=== PATIENT | female | born 1955 | race Caucasian/White ===

== ENCOUNTER 2017-07-30 13:31 | Emergency (ER) | payer BC ==
[2017-07-30 13:47] VITALS: BP 139/74; PULSE 72; RESP 20; TEMP 97.5
--- NOTE | 2017-07-30 13:58 | ED ---
General Adult HPI - General Chief complaint: Extremity Injury, Upper Stated complaint: fall/arm pain Time Seen by Provider: 07/30/17 13:49 Source: patient, RN notes reviewed Mode of arrival: ambulatory Limitations: no limitations - History of Present Illness Initial comments: 61-year-old female presents emergency Department chief complaint of right elbow pain. She states that she slipped on the ice today landing onto her right elbow. She states it happened earlier this morning just is progressively becoming more painful. She denies any fever or chills. She denies any head injury or any loss of consciousness. They were concerned due to that her continued discomfort so she thought that she should be seen.Patient denies any recent fever, chills, shortness of breath, chest pain, back pain, abdominal pain , nausea vomiting, numbness or tingling, dysuria or hematuria, constipation or diarrhea, headaches or visual changes, or any other current symptoms. - Related Data Home Medications Medication Instructions Recorded Confirmed Lovastatin 40 mg PO HS 11/22/14 07/04/15 Omeprazole [PriLOSEC] 20 tab PO DAILY 11/22/14 07/04/15 amLODIPine BESYLATE/BENAZEPRIL 1 cap PO DAILY 07/02/15 07/04/15 [Lotrel 5-10 mg Capsule] Allergies Allergy/AdvReac Type Severity Reaction Status Date / Time No Known Allergies Allergy Verified 07/30/17 14:03 Review of Systems ROS Statement: Those systems with pertinent positive or pertinent negative responses have been documented in the HPI. ROS Other: All systems not noted in ROS Statement are negative. Past Medical History Past Medical History: GERD/Reflux, Hyperlipidemia, Hypertension Additional Past Medical History / Comment(s): MURMUR History of Any Multi-Drug Resistant Organisms: MRSA Date of last positivie culture/infection: 07/02/15 MDRO Source:: BUTTOCK Past Surgical History: Appendectomy Additional Past Surgical History / Comment(s): CYSTS REMOVED FROM OVARIES, COLONOSCOPY. Past Anesthesia/Blood Transfusion Reactions: Previous Problems w/ Anesthesia Additional Past Anesthesia/Blood Transfusion Reaction / Comment(s): DIFFICULTY WAKING. Past Psychological History: No Psychological Hx Reported Smoking Status: Never smoker Past Alcohol Use History: None Reported Past Drug Use History: None Reported - Past Family History Father Family Medical History: Diabetes Mellitus, Hypertension, Osteoarthritis (OA), Thyroid Disorder Mother Family Medical History: Diabetes Mellitus Additional Family Medical History / Comment(s): HIP REPLACEMENT- MOM IS General Exam - General Exam Comments Initial Comments: General: The patient is awake and alert, in no distress, and does not appear acutely ill. Neck: The neck is supple, there is no tenderness. Cardiovascular: There is a regular rate and rhythm. No murmur, rub or gallop is appreciated. Respiratory: Lungs are clear to auscultation, respirations are non-labored, breath sounds are equal. No wheezes, stridor, rales, or rhonchi. Musculoskeletal: Sensation intact with 2+ pulses. Extremity. Fund motion of right wrist. Patient's range of motion of right shoulder. Pain with range of motion of the right elbow. No numbness or tingling. There is some swelling noted. No specific point bony tenderness. Neurological: CN II-XII intact, There are no obvious motor or sensory deficits. Coordination appears grossly intact. Speech is normal. Skin: Skin is warm and dry and no rashes or lesions are noted. Psychiatric: Normal mood and affect. Limitations: no limitations Course Vital Signs 07/30/17 13:45 Temperature 97.5 F L Pulse Rate 72 Respiratory 20 Rate Blood Pressure 139/74 O2 Sat by Pulse 100 Oximetry Procedures - Orthopedic Splinting/Casting Injury #1 Side: right Upper Extremity Injury Location: long arm, elbow Upper Extremity Immobilizer: sling/shoulder immobilizer, posterior splint (long arm) Medical Decision Making - Medical Decision Making 61-year-old female presents for right elbow pain after a fall. At this time patient x-rays reviewed that does show concern for occult fracture. This time she was placed in a splint. We discussed follow-up with orthopedic we discussed return parameters all questions. Patient stated that she understood and she is agreement this plan. She'll be discharged. - Radiology Data Radiology results: report reviewed, image reviewed Disposition Clinical Impression: Occult fracture of right elbow Disposition: HOME SELF-CARE Condition: Stable Instructions: Elbow Fracture (ED) Additional Instructions: Please use medication as discussed. Please follow up with family doctor if symptoms have not improved over the next two days. Please return to the emergency room if your symptoms increase or worsen or for any other concerns. Referrals: Russell Tanner DO [Primary Care Provider] - 1-2 days Minh Pereira MD [STAFF PHYSICIAN] - 1-2 days Time of Disposition: 14:33
--- NOTE | 2017-07-30 14:25 | XR ---
EXAMINATION TYPE: XR elbow complete RT DATE OF EXAM: 07/30/2017 CLINICAL HISTORY: pain TECHNIQUE: Frontal, lateral and oblique images of the right elbow are obtained. COMPARISON: None. FINDINGS: There is no acute fracture/dislocation evident of the elbow. Pathologic anterior or mining technician ior fat pads. The overlying soft tissue appears unremarkable. IMPRESSION: Pathologic anterior and posterior fat pads. Occult fracture not seen on the indirect evid ence for displaced fracture at this time. Correlate clinically.
== END 2017-07-30 14:45 | disposition home or self-care (01) ==
LOC: EC 13:31
DX: S42.401A Unspecified fracture of lower end of right humerus, initial encounter for closed fracture (principal); K21.9 Gastro-esophageal reflux disease without esophagitis; E78.5 Hyperlipidemia, unspecified; I10 Essential (primary) hypertension; Z86.14 Personal history of Methicillin resistant Staphylococcus aureus infection; Z79.899 Other long term (current) drug therapy
CPT/HCPCS: 29105; 99283

== ENCOUNTER 2018-09-02 18:44 | Observation (INO) | payer BC ==
[2018-09-02] MEDS ORDERED: SODIUM CHLORIDE 0.9% 1,000 ML IV STA (19:06)
[2018-09-02] MEDS ORDERED: ASPIRIN 81 MG PO STA (19:06)
[2018-09-02 20:07] LABS: Basophils # (A) 0.1 k/uL (0-0.2); Basophils % (A) 1 %; Eosinophils # (A) 0.4 k/uL (0-0.7); Eosinophils % (A) 5 %; HCT 42.5 % (34.0-46.0); HGB 13.8 gm/dL (11.4-16.0); Lymphocytes # (A) 2.9 k/uL (1.0-4.8); Lymphocytes % (A) 37 %; MCH 27.3 pg (25.0-35.0); MCHC 32.5 g/dL (31.0-37.0); Mean Platelet Volume 6.3; Monocytes # (A) 0.4 k/uL (0-1.0); Monocytes % (A) 5 %; Neutrophils # (A) 3.8 k/uL (1.3-7.7); Neutrophils % (A) 49 %; Platelet Count 333 k/uL (150-450); RBC 5.06 m/uL (3.80-5.40); RDW 13.9 % (11.5-15.5); WBC 7.8 k/uL (3.8-10.6)
[2018-09-02 20:16] LABS: ALT 42 U/L (9-52); AST 31 U/L (14-36); Albumin 4.5 g/dL (3.5-5.0); Alkaline Phosphatase 79 U/L (38-126); Blood Urea Nitrogen 20 mg/dL (7-17); Calcium 9.6 mg/dL (8.4-10.2); Carbon Dioxide 29 mmol/L (22-30); Chloride 103 mmol/L (98-107); Glucose 102 mg/dL (74-99); Magnesium 1.9 mg/dL (1.6-2.3); Total Bilirubin 0.4 mg/dL (0.2-1.3); Total Protein 7.6 g/dL (6.3-8.2)
[2018-09-02 20:21] LABS: Anion Gap 8 mmol/L; Potassium 4.3 mmol/L (3.5-5.1); Sodium 140 mmol/L (137-145)
[2018-09-02 20:29] LABS: INR 0.9 (<1.2); Partial Thromboplastin Time 25.3 sec (22.0-30.0); Prothrombin Time 9.8 sec (9.0-12.0)
--- NOTE | 2018-09-02 20:42 | ED ---
General Adult HPI - General Chief complaint: Extremity Problem,Nontraumatic Stated complaint: Arm and shoulder pain Time Seen by Provider: 09/02/18 19:06 Source: patient, RN notes reviewed, old records reviewed Mode of arrival: ambulatory Limitations: no limitations - History of Present Illness Initial comments: 62-year-old female patient with past medical history of gastroesophageal reflux disease, hypertension presents to ED with left shoulder pain of 2 days. Patient reports that the pain is worse with range of motion, has some pain radiation down to her left bicep. Patient states that she has felt 2 episodes of some mild sternal heaviness. Patient reports that these were transient. One occurred while laying down at night. One occurred this morning while sitting. Patient states that this lasted less than 2 seconds and did not radiate. Patient has been ambulatory and active. Patient has not expressed any chest pain with activity. Patient denies any shortness of breath. Patient denies other complaints. Patient states that the primary reason that she presented today was because she wanted to make sure that her left shoulder pain is not a coronary equivalent. Patient has no personal cardiac history. Systemic: Pt denies fatigue, myalgia, fever/chills, rash. Pt denies weakness, night sweats, weight loss. Neuro: Pt denies headache, visual disturbances, syncope or pre-syncope. HEENT: Pt denies ocular discharge or irritation, otalgia, rhinorrhea, pharyngitis or notable lymphadenopathy. Cardiopulmonary: Pt denies SOB, heart palpitations, dyspnea on exertion. Abdominal/GI: Pt denies abdominal pain, n/v/d. : Pt denies dysuria, burning w/ urination, frequency/urgency. Denies new onset urinary or bowel incontinence. MSK: Pt denies myalgia, loss of strength or function in extremities. Neuro: Pt denies new onset weakness, paresthesias. - Related Data Home Medications Medication Instructions Recorded Confirmed Lovastatin 40 mg PO HS 11/22/14 09/02/18 Omeprazole [PriLOSEC] 20 mg PO DAILY 11/22/14 09/02/18 amLODIPine BESYLATE/BENAZEPRIL 1 cap PO DAILY 07/02/15 09/02/18 [Lotrel 5-10 mg Capsule] Multivit-Min/Iron/Folic/Lutein 1 tab PO DAILY 09/02/18 09/02/18 [Centrum Silver Women Tablet] Allergies Allergy/AdvReac Type Severity Reaction Status Date / Time No Known Allergies Allergy Verified 09/02/18 20:43 Review of Systems ROS Statement: Those systems with pertinent positive or pertinent negative responses have been documented in the HPI. ROS Other: All systems not noted in ROS Statement are negative. Past Medical History Past Medical History: GERD/Reflux, Hyperlipidemia, Hypertension Additional Past Medical History / Comment(s): MURMUR History of Any Multi-Drug Resistant Organisms: MRSA Date of last positivie culture/infection: 07/02/15 MDRO Source:: BUTTOCK Past Surgical History: Appendectomy Additional Past Surgical History / Comment(s): CYSTS REMOVED FROM OVARIES, COLONOSCOPY. Past Anesthesia/Blood Transfusion Reactions: Previous Problems w/ Anesthesia Additional Past Anesthesia/Blood Transfusion Reaction / Comment(s): DIFFICULTY WAKING. Past Psychological History: No Psychological Hx Reported Smoking Status: Never smoker Past Alcohol Use History: None Reported Past Drug Use History: None Reported - Past Family History Father Family Medical History: Diabetes Mellitus, Hypertension, Osteoarthritis (OA), Thyroid Disorder Mother Family Medical History: Diabetes Mellitus Additional Family Medical History / Comment(s): HIP REPLACEMENT- MOM IS General Exam - General Exam Comments Initial Comments: Constitutional: NAD, AOX3, Pt has pleasant affect. HEENT: NC/AT, trachea midline, neck supple, no lymphadenopathy. Posterior pharynx non erythematous, without exudates. External ears appear normal, without discharge. Mucous membranes moist. Eyes PERRLA, EOM intact. There is no scleral icterus. No pallor noted. Cardiopulmonary: RRR, no murmurs, rubs or gallops, no JVD noted. Lungs CTAB in anterior and posterior cee. No peripheral edema. Abdominal exam: Abdomen soft and non-distended. Abdomen non-tender to palpation in all 4 quadrants. Bowel sounds active in LLQ. No hepatosplenomegaly. No ecchymosis Neuro: CN II-XII grossly intact. No nuchal rigidity. MSK: No posterior calf tenderness bilaterally, homans sign negative bilaterally. Posterior tibialis and radial pulse +2 bilaterally. Sensation intact in upper and lower extremities. Full active ROM in upper and lower extremities, 5/5 stregnth. Limitations: no limitations Course Vital Signs 09/02/18 09/02/18 09/02/18 19:03 19:57 22:00 Temperature 98.2 F Pulse Rate 90 89 83 Respiratory 18 16 18 Rate Blood Pressure 156/82 147/93 132/76 O2 Sat by Pulse 99 97 96 Oximetry Medical Decision Making - Medical Decision Making 62-year-old female patient with past medical history of gastroesophageal reflux disease, hypertension presents to ED with left shoulder pain of 2 days. Patient reports that the pain is worse with range of motion, has some pain radiation down to her left bicep. Patient states that she has felt 2 episodes of some mild sternal heaviness. Patient reports that these were transient. One occurred while laying down at night. One occurred this morning while sitting. Patient states that this lasted less than 2 seconds and did not radiate. Patient has been ambulatory and active. Patient has not expressed any chest pain with activity. Patient denies any shortness of breath. Patient denies other complaints. Patient states that the primary reason that she presented today was because she wanted to make sure that her left shoulder pain is not a coronary equivalent. Patient has no personal cardiac history. Patient vital signs stable, afebrile. Physical exam did not display acute pathology. investigations revealed a non-impressive CBC, CMP, coagulation studies within normal limits, troponin negative, BNP negative. EKG not concerning for acute ischemia. Patient to be admitted for serial troponins, telemetry. Case discussed with Dr. Edwards. - Lab Data Result diagrams: 09/02/18 17:45 09/02/18 17:45 Lab Results 09/02/18 09/02/18 09/02/18 Range/Units 17:45 17:45 17:45 WBC 7.8 (3.8-10.6) k/uL RBC 5.06 (3.80-5.40) m/uL Hgb 13.8 (11.4-16.0) gm/dL Hct 42.5 (34.0-46.0) % MCV 84.0 (80.0-100.0) fL MCH 27.3 (25.0-35.0) pg MCHC 32.5 (31.0-37.0) g/dL RDW 13.9 (11.5-15.5) % Plt Count 333 (150-450) k/uL Neutrophils % 49 % Lymphocytes % 37 % Monocytes % 5 % Eosinophils % 5 % Basophils % 1 % Neutrophils # 3.8 (1.3-7.7) k/uL Lymphocytes # 2.9 (1.0-4.8) k/uL Monocytes # 0.4 (0-1.0) k/uL Eosinophils # 0.4 (0-0.7) k/uL Basophils # 0.1 (0-0.2) k/uL PT (9.0-12.0) sec INR (<1.2) APTT (22.0-30.0) sec Sodium 140 (137-145) mmol/L Potassium 4.3 (3.5-5.1) mmol/L Chloride 103 (98-107) mmol/L Carbon Dioxide 29 (22-30) mmol/L Anion Gap 8 mmol/L BUN 20 H (7-17) mg/dL Creatinine 0.72 (0.52-1.04) mg/dL Est GFR (CKD-EPI)AfAm >90 (>60 ml/min/1.73 sqM) Est GFR (CKD-EPI)NonAf >90 (>60 ml/min/1.73 sqM) Glucose 102 H (74-99) mg/dL Calcium 9.6 (8.4-10.2) mg/dL Magnesium 1.9 (1.6-2.3) mg/dL Total Bilirubin 0.4 (0.2-1.3) mg/dL AST 31 (14-36) U/L ALT 42 (9-52) U/L Alkaline Phosphatase 79 (38-126) U/L Troponin I (0.000-0.034) ng/mL NT-Pro-B Natriuret Pep <11 pg/mL Total Protein 7.6 (6.3-8.2) g/dL Albumin 4.5 (3.5-5.0) g/dL 09/02/18 09/02/18 Range/Units 17:45 17:45 WBC (3.8-10.6) k/uL RBC (3.80-5.40) m/uL Hgb (11.4-16.0) gm/dL Hct (34.0-46.0) % MCV (80.0-100.0) fL MCH (25.0-35.0) pg MCHC (31.0-37.0) g/dL RDW (11.5-15.5) % Plt Count (150-450) k/uL Neutrophils % % Lymphocytes % % Monocytes % % Eosinophils % % Basophils % % Neutrophils # (1.3-7.7) k/uL Lymphocytes # (1.0-4.8) k/uL Monocytes # (0-1.0) k/uL Eosinophils # (0-0.7) k/uL Basophils # (0-0.2) k/uL PT 9.8 (9.0-12.0) sec INR 0.9 (<1.2) APTT 25.3 (22.0-30.0) sec Sodium (137-145) mmol/L Potassium (3.5-5.1) mmol/L Chloride (98-107) mmol/L Carbon Dioxide (22-30) mmol/L Anion Gap mmol/L BUN (7-17) mg/dL Creatinine (0.52-1.04) mg/dL Est GFR (CKD-EPI)AfAm (>60 ml/min/1.73 sqM) Est GFR (CKD-EPI)NonAf (>60 ml/min/1.73 sqM) Glucose (74-99) mg/dL Calcium (8.4-10.2) mg/dL Magnesium (1.6-2.3) mg/dL Total Bilirubin (0.2-1.3) mg/dL AST (14-36) U/L ALT (9-52) U/L Alkaline Phosphatase (38-126) U/L Troponin I <0.012 (0.000-0.034) ng/mL NT-Pro-B Natriuret Pep pg/mL Total Protein (6.3-8.2) g/dL Albumin (3.5-5.0) g/dL - EKG Data -: EKG Interpreted by Me (and dr edwards) EKG Comments: Normal sinus rhythm, minimal voltage criteria for LVH, maybe normal variant. Borderline EKG. Ventricular rate 87. MD interval 158. QRS 76. QT/QTc 374/ 450. Disposition Clinical Impression: Anginal equivalent Disposition: ADMITTED IP TO THIS [facility] Condition: Serious Is patient prescribed a controlled substance at d/c from ED?: No Referrals: Russell Tanner DO [Primary Care Provider] - 1-2 days
--- NOTE | 2018-09-02 20:57 | XR ---
EXAMINATION TYPE: XR shoulder complete LT DATE OF EXAM: 09/02/2018 COMPARISON: NONE HISTORY: Shoulder pain TECHNIQUE: 3 views FINDINGS: I see no fracture nor dislocation. Joint spaces are normal. There are no pathologic calcifi cations. IMPRESSION: Negative left shoulder exam.
--- NOTE | 2018-09-02 20:58 | XR ---
EXAMINATION TYPE: XR chest 2V DATE OF EXAM: 09/02/2018 COMPARISON: NONE HISTORY: Left arm pain TECHNIQUE: Frontal and lateral views of the chest are obtained. FINDINGS: Heart and mediastinum are normal. Lungs are clear. Diaphragm is normal. There are chest le ads. Bony thorax is intact. IMPRESSION: Normal chest
[2018-09-02] MEDS ORDERED: NITROGLYCERIN SL TABS 0.4 MG TAB SUBLINGUAL PRN (21:48)
[2018-09-03 00:28] LABS: Creatine Kinase 89 U/L (30-135)
[2018-09-03 00:42] LABS: Creatine Kinase MB 1.6 ng/mL (0.0-2.4); Troponin I <0.012 ng/mL (0.000-0.034)
[2018-09-03 04:08] LABS: Cholesterol 166 mg/dL (<200); HDL Cholesterol 65 mg/dL (40-60); LDL Cholesterol,Calculated 84 mg/dL (0-99); Triglycerides 84 mg/dL (<150)
[2018-09-03 04:26] LABS: Creatine Kinase 83 U/L (30-135)
[2018-09-03 04:40] LABS: Creatine Kinase MB 1.4 ng/mL (0.0-2.4); Troponin I <0.012 ng/mL (0.000-0.034)
--- NOTE | 2018-09-03 08:53 | CONS ---
CONSULTATION CHIEF COMPLAINT: Left shoulder pain. Yaneli is a 62-year-old lady with history of dyslipidemia and hypertension who presents to hospital complaining of left shoulder pain and she also has some left neck pain and discomfort seems musculoskeletal mild intensity, unrelated to exertion and is worse with diaphoresis. She is admitted to hospital and has had 3 troponin this morning.Mi ruled out EKG reveals sinus rhythm without significant ST-T wave changes. she will undergo a stress test. PAST MEDICAL HISTORY: Significant for hypertension, dyslipidemia. CURRENT MEDICATIONS: Include Avapro, Lipitor and vitamin C. ALLERGIES: No known drug allergies. FAMILY HISTORY: Negative for premature coronary artery disease. SOCIAL HISTORY: Negative for current smoking, EtOH abuse or drug abuse. REVIEW OF SYSTEMS: HEENT is unremarkable. CARDIAC: As described above. RESPIRATORY: Negative. GI: Negative. GENITOURINARY: Negative. ALLERGY: None. SKIN: Negative. MUSCULOSKELETAL: Negative. The rest of the system review is not relevant. On exam, patient is comfortable at rest. Vital signs are stable. There is no jugular venous distention. Carotid upstroke is normal. There is no bruit. Chest exam reveals good air entry bilaterally. Heart exam reveals first and second heart sounds. No gallop. No murmur. No rub. Abdomen is soft, nontender. Exam of extremities did not reveal edema. Peripheral pulses are felt. ASSESSMENT: 1. Atypical chest pain. 2. Hypertension. 3. Dyslipidemia. PLAN: I am going to will obtain another set of troponin. I would also obtain a 2D echo. If this is these are negative, she can be discharged home and outpatient followup arranged with me. NICKOLAS / ANASTASIAN: [id number] / MU
[2018-09-03] MEDS ORDERED: ASPIRIN 325 MG TAB PO SCH (09:00)
[2018-09-03 09:16] VITALS: RESP 18
--- NOTE | 2018-09-03 10:06 | ECHOF ---
Referral Reason:chest pain MEASUREMENTS -------- HEIGHT: 165.1 cm WEIGHT: 98.9 kg BP: 142/91 IVSd: 1.1 cm (0.6 - 1.1) LVIDd: 3.9 cm (3.9 - 5.3) LVPWd: 1.2 cm (0.6 - 1.1) IVSs: 1.5 cm LVIDs: 2.7 cm LVPWs: 1.6 cm LA Diam: 3.6 cm (2.7 - 3.8) Ao Diam: 2.9 cm (2.0 - 3.7) AV Cusp: 1.5 cm (1.5 - 2.6) LA Diam: 4.2 cm (2.7 - 3.8) MV EXCURSION: 20.130 mm (> 18.000) MV EF SLOPE: 118 mm/s (70 - 150) EPSS: 0.3 cm MV E Elijah: 0.52 m/s MV DecT: 189 ms MV A Elijah: 0.87 m/s MV E/A Ratio: 0.59 RAP: 5.00 mmHg RVSP: 23.73 mmHg FINDINGS -------- Sinus rhythm. This was a technically adequate study. LV size, wall thickness and systolic function are normal, with an EF greater than 55%. The left luis alberto tricular size is normal. The right ventricle is normal in size. The left atrial size is normal. The right atrial size is normal. The aortic valve is trileaflet, and appears structurally normal. No aortic stenosis or regurgitation. Mild mitral annular calcification present. Mild mitral regurgitation is present. Mild tricuspid regurgitation present. There is no evidence of pulmonary hypertension. The right v entricular systolic pressure, as measured by Doppler, is 23.73mmHg. There is no pulmonic regurgitation present. The aortic root size is normal. There is no pericardial effusion. CONCLUSIONS -------- 1. LV size, wall thickness and systolic function are normal, with an EF greater than 55%. 2. The left ventricular size is normal. 3. The right ventricle is normal in size. 4. The left atrial size is normal. 5. The right atrial size is normal. 6. The aortic valve is trileaflet, and appears structurally normal. No aortic stenosis or regurgitati on. 7. Mild mitral annular calcification present. 8. Mild mitral regurgitation is present. 9. Mild tricuspid regurgitation present. 10. There is no evidence of pulmonary hypertension. 11. The right ventricular systolic pressure, as measured by Doppler, is 23.73mmHg. 12. There is no pulmonic regurgitation present. 13. The aortic root size is normal. 14. There is no pericardial effusion. MAT REPAIRER: Vesta Ribeiro RDCS
--- NOTE | 2018-09-03 11:11 | ECHOS ---
STRESS ECHOCARDIOGRAM INDICATIONS: Chest pain. BASELINE HEART RATE: 86 BASELINE BLOOD PRESSURE: 147/109 MAXIMUM HEART RATE: 153 MAXIMUM BLOOD PRESSURE: 193/93 85% MPHR: 133 100% MPHR: 157 METS: 6.0 MAXIMUM STAGE REACHED: 2 TOTAL EXERCISE TIME: 5:00 CLINICAL INFORMATION: Baseline EKG shows sinus rhythm, normal axis, normal intervals. Patient exercised on Victor Hugo protocol for a total of 5 minutes achieving 6 METs, 85% of predicted maximum heart rate without chest pain or diagnostic ST-segment depression. Baseline echo shows normal left ventricular size, wall motion and systolic function. Postexercise, there is normal hyperdynamic response of all segments of myocardium noted. CONCLUSION: 1. Limited exercise tolerance. 2. Negative stress test by EKG criteria. 3. Negative stress echo. MMODL / IJN: [id number] /
[2018-09-03] MEDS ORDERED: LISINOPRIL 10 MG TAB PO SCH (12:15)
[2018-09-03] MEDS ORDERED: amLODIPine 5 MG TAB PO SCH (12:15)
[2018-09-03 12:58] VITALS: BP 155/98; PULSE 89; TEMP 98.5
--- NOTE | 2018-09-03 19:02 | P.HPIM ---
History of Present Illness combined H&P and discharge summary , ( please note pt was not discharged becuase she refused to stay and complete workup and signed leaving AMA) this is a pleasant 62 yo F who present with left side shoulder pain of 2-3 days duration , pt denies h/o trauma , pt think it happened from overusing her arm , pt could not raise her left arm yesterday which is concerning for morning stiffness, however today she could. she came to the hospital for checking her heart, digester cook evaluated pt and cleared her for discharge after she had negative stress test. however pt also was complaining from headacke today , frontal , about 2/10 in severity, non specific, not associated with blurred vision, pt presentation was concerning giant cell arteritis , or temporal arteritis , however pt refused to stay for further w/u like ESR and CRP, instead she wanted to leave and f/u with her doctor as outpt. pt decided to sign leaving AMA after she discussed it with her at bed side, written information was provided for the pt for the name of the disease and recommended test and said she is going to take it to her doctor . pt is counseled against signing leaving AMA, risks including but not limited to , loss of vission which could be permanent and/or are explained for the pt and she verbalized understanding but she still wants to sign AMA , pt has capacity to make medical decision script were offered to the pt and she states she did not need any Gen.: Patient alert awake and oriented X 3, NOT IN DISTRESS H&N: i could not palpate the temporal arteries CVS: s1-s2, RRR, no murmur CHEST:bilateral CTA, no wheezing or crepitation Abdomen: Soft, no tenderness, no distention, positive bowel sounds Extremities: No leg edema or induration time spent : more than 35 min Past Medical History Past Medical History: GERD/Reflux, GI Bleed, Hyperlipidemia, Hypertension Additional Past Medical History / Comment(s): MURMUR, colitis History of Any Multi-Drug Resistant Organisms: MRSA Date of last positivie culture/infection: 07/02/15 MDRO Source:: BUTTOCK Past Surgical History: Appendectomy Additional Past Surgical History / Comment(s): CYSTS REMOVED FROM OVARIES, COLONOSCOPY. Past Anesthesia/Blood Transfusion Reactions: Previous Problems w/ Anesthesia Additional Past Anesthesia/Blood Transfusion Reaction / Comment(s): DIFFICULTY WAKING. Past Psychological History: No Psychological Hx Reported Smoking Status: Never smoker Past Alcohol Use History: None Reported Past Drug Use History: None Reported - Past Family History Father Family Medical History: Diabetes Mellitus, Hypertension, Osteoarthritis (OA), Thyroid Disorder Mother Family Medical History: Diabetes Mellitus Additional Family Medical History / Comment(s): HIP REPLACEMENT- MOM IS Medications and Allergies Home Medications Medication Instructions Recorded Confirmed Type Lovastatin 40 mg PO HS 11/22/14 09/02/18 History Omeprazole [PriLOSEC] 20 mg PO DAILY 11/22/14 09/02/18 History amLODIPine BESYLATE/BENAZEPRIL 1 cap PO DAILY 07/02/15 09/02/18 History [Lotrel 5-10 mg Capsule] Multivit-Min/Iron/Folic/Lutein 1 tab PO DAILY 09/02/18 09/02/18 History [Centrum Silver Women Tablet] Allergies Allergy/AdvReac Type Severity Reaction Status Date / Time No Known Allergies Allergy Verified 09/02/18 20:43 Physical Exam Vitals: Vital Signs Temp Pulse Pulse Resp BP BP BP 09/03/18 12:00 98.5 F 89 18 155/98 09/03/18 07:00 98.3 F 85 18 136/84 09/03/18 04:00 98.2 F 86 16 142/91 09/03/18 00:30 16 09/03/18 00:00 98.4 F 80 77 16 137/81 149/85 09/02/18 23:30 90 15 150/81 09/02/18 22:00 83 18 132/76 09/02/18 19:57 89 16 147/93 09/02/18 19:03 98.2 F 90 18 156/82 Pulse Ox 09/03/18 12:00 98 09/03/18 07:00 96 09/03/18 04:00 97 09/03/18 00:30 09/03/18 00:00 96 09/02/18 23:30 97 09/02/18 22:00 96 09/02/18 19:57 97 09/02/18 19:03 99 Intake and Output 09/03/18 09/03/18 09/03/18 06:59 14:59 22:59 Intake Total 118 Balance 118 Intake: Oral 118 Other: Voiding Method Toilet Toilet # Voids 2 Results CBC & Chem 7: 09/02/18 17:45 09/02/18 17:45 Labs: Abnormal Lab Results - Last 24 Hours (Table) 09/02/18 09/03/18 Range/Units 17:45 03:17 BUN 20 H (7-17) mg/dL Glucose 102 H (74-99) mg/dL HDL Cholesterol 65 H (40-60) mg/dL Thrombosis Risk Factor Assmnt - Choose All That Apply Each Factor Represents 1 point: Obesity (BMI >25) Each Risk Factor Represents 2 Points: Age 61-74 years Thrombosis Risk Factor Assessment Total Risk Factor Score: 3 Thrombosis Risk Factor Assessment Level: Moderate Risk
== END 2018-09-03 15:55 | disposition left against medical advice (07) ==
LOC: EC 18:44 → 1SOBS 21:48
PROVIDERS: ADMIT Hospitalist; ATTEND Hospitalist
DX: M25.512 Pain in left shoulder (principal); R07.89 Other chest pain; I10 Essential (primary) hypertension; K21.9 Gastro-esophageal reflux disease without esophagitis; M54.2 Cervicalgia; E78.5 Hyperlipidemia, unspecified; R61 Generalized hyperhidrosis; R51 Headache; E66.9 Obesity, unspecified; Z68.35 Body mass index [BMI] 35.0-35.9, adult; Z53.21 Procedure and treatment not carried out due to patient leaving prior to being seen by health care provider; Z86.14 Personal history of Methicillin resistant Staphylococcus aureus infection; Z79.899 Other long term (current) drug therapy; Z86.79 Personal history of other diseases of the circulatory system; Z90.49 Acquired absence of other specified parts of digestive tract; Z83.3 Family history of diabetes mellitus; Z87.19 Personal history of other diseases of the digestive system; Z82.49 Family history of ischemic heart disease and other diseases of the circulatory system; Z83.49 Family history of other endocrine, nutritional and metabolic diseases; Z82.61 Family history of arthritis
CPT/HCPCS: 96360; 96361; 99285; 36415; 93005; 93306; 93351; 83880; 80061; 80053; 82550 ×2; 82553 ×2; 83735; 84484 ×2; 85025; 85610; 85730; 73030; 71046; G0378 ×2

== ENCOUNTER → 2020-01-07 | Outpatient (CLI) | payer MEDICARE, BC ==
--- NOTE | 2020-01-11 08:23 | MM ---
Reason for exam: screening (asymptomatic). Last mammogram was performed 1 year and 3 months ago. History: Patient is postmenopausal and had first child at age 34. Family history of breast cancer in paternal aunt at age 78. Took hormonal contraceptives for 1 year beginning at age 21. Physical Findings: A clinical breast exam by your physician is recommended on an annual basis and results should be correlated with mammographic findings. MG 3D Screening Mammo W/Cad Bilateral CC and MLO view(s) were taken. Prior study comparison: October 15, 2018, bilateral MG 3d screening mammo w/cad. May 19, 2017, bilateral MG screening mammo w CAD. The breast tissue is almost entirely fat. There is no discrete abnormality. No significant changes when compared with prior studies. ASSESSMENT: Negative, BI-RAD 1 RECOMMENDATION: Routine screening mammogram of both breasts in 1 year.
== END | disposition home or self-care (01) ==
LOC: RADMAMWWP 07:50
PROVIDERS: ATTEND Obstetrics & Gynecology
DX: Z12.31 Encounter for screening mammogram for malignant neoplasm of breast (principal)
CPT/HCPCS: 77063; 77067

== ENCOUNTER → 2021-11-14 | Outpatient (CLI) | payer MEDICARE ==
--- NOTE | 2021-11-15 10:56 | MM ---
Reason for exam: screening (asymptomatic). Last mammogram was performed 1 year and 10 months ago. History: Patient is postmenopausal and had first child at age 34. Family history of breast cancer in paternal aunt at age 78. Took hormonal contraceptives for 1 year beginning at age 21. Physical Findings: A clinical breast exam by your physician is recommended on an annual basis and results should be correlated with mammographic findings. MG 3D Screening Mammo W/Cad Bilateral CC and MLO view(s) were taken. Prior study comparison: January 07, 2020, bilateral MG 3d screening mammo w/cad. October 15, 2018, bilateral MG 3d screening mammo w/cad. The breast tissue is almost entirely fat. No significant changes when compared with prior studies. ASSESSMENT: Benign, BI-RAD 2 RECOMMENDATION: Routine screening mammogram of both breasts in 1 year.
== END | disposition home or self-care (01) ==
LOC: RADMAMWWP 09:35
PROVIDERS: ATTEND Family Medicine
DX: Z12.31 Encounter for screening mammogram for malignant neoplasm of breast (principal); Z78.0 Asymptomatic menopausal state; Z80.3 Family history of malignant neoplasm of breast
CPT/HCPCS: 77063; 77067

== ENCOUNTER → 2023-03-11 | Outpatient (CLI) | payer MEDICARE ==
--- NOTE | 2023-03-12 16:13 | MM ---
Reason for Exam: Screening (asymptomatic). Last mammogram was performed 1 year(s) and 4 month(s) ago. Patient History: Menarche at age 11. First Full-Term at age 34. Late child-bearing (after 30). Postmenopausal. Patient has history of breast feeding. Hormonal Contraceptives for 1 year from age 21 until age 22. Paternal aunt had breast cancer, age 78. Risk Values: Maria Victoria 5 year model risk: 2.4%. NCI Lifetime model risk: 7.6%. Prior Study Comparison: 10/15/2018 Bilateral Screening Mammogram, [facility]. 01/07/2020 Bilateral Screening Mammogram, [facility]. 11/14/2021 Bilateral Screening Mammogram, [facility]. Tissue Density: The breast tissue is almost entirely fat. Findings: Analyzed By CAD. Pattern appears symmetrical and stable. Benign calcifications are within the right breast. No significant interval changes are evident. No suspicious groups of microcalcifications, spiculated or lobular masses, architectural distortion or other secondary signs of malignancy are mammographically apparent. Overall Assessment: Negative, BI-RAD 1 Management: Screening Mammogram of both breasts in 1 year. A negative mammogram report should not preclude additional follow up of suspicious palpable abnormalities. Patient should continue monthly self breast exam. A clinical breast exam by your physician is recommended on an annual basis and results should be correlated with mammographic findings. Electronically signed and approved by: Russell Quach D.O. Radiologis
== END | disposition home or self-care (01) ==
LOC: RADMAMWWP 09:55
PROVIDERS: ATTEND Family Medicine
DX: Z12.31 Encounter for screening mammogram for malignant neoplasm of breast (principal); Z78.0 Asymptomatic menopausal state; Z80.3 Family history of malignant neoplasm of breast
CPT/HCPCS: 77063; 77067

== ENCOUNTER 2023-05-10 11:42 | Emergency (ER) | payer MEDICARE ==
[2023-05-10 11:49] VITALS: TEMP 98
[2023-05-10] MEDS ORDERED: DEXAMETHASONE SOD PHOSPHATE 10 MG/ML 1 ML VIAL IVP STA (12:48)
[2023-05-10] MEDS ORDERED: valACYclovir HCL 1,000 MG TABLET PO STA (12:48)
[2023-05-10] MEDS ORDERED: SODIUM CHLORIDE 0.9% 1,000 ML IV STA (12:48)
--- NOTE | 2023-05-10 12:51 | ED ---
Neuro HPI - General Chief Complaint: Neuro Symptoms/Deficit Stated Complaint: Facial Pain Time Seen by Provider: 05/10/23 12:22 Source: patient, RN notes reviewed, old records reviewed Limitations: no limitations - History of Present Illness Is the patient presenting with stroke symptoms?: No -: hour(s) Initial Comments: This is a 67-year-old female to the emergency department for evaluation of left- sided facial pain. Pain neck pain. Patient states that she is also noticing muscle her face aren't working as well as usual and she went to drink something today and was drooling. Patient has no headaches no fevers no other complaints. Location: left face History of same: Yes Severity: moderate Quality: weak, numb, tingling, constant Improves With: none Worsens With: none On Anticoagulants: No Context: gradual onset Associated Symptoms: denies other symptoms Treatments Prior to Arrival: none - Related Data Home Medications: Home Medications Medication Instructions Recorded Confirmed Lovastatin 40 mg PO HS 11/22/14 09/02/18 Omeprazole [PriLOSEC] 20 mg PO DAILY 11/22/14 09/02/18 amLODIPine BESYLATE/BENAZEPRIL 1 cap PO DAILY 07/02/15 09/02/18 [Lotrel 5-10 mg Capsule] Multivit-Min/Iron/Folic/Lutein 1 tab PO DAILY 09/02/18 09/02/18 [Centrum Silver Women Tablet] Previous Rx's Medication Instructions Recorded predniSONE [Deltasone] 60 mg PO DAILY #21 tab 05/10/23 valACYclovir HCL [Valacyclovir] 1,000 mg PO TID #21 tab 05/10/23 Allergies/Adverse Reactions: Allergies Allergy/AdvReac Type Severity Reaction Status Date / Time No Known Allergies Allergy Verified 05/10/23 11:44 Review of Systems ROS Statement: Those systems with pertinent positive or pertinent negative responses have been documented in the HPI. ROS Other: All systems not noted in ROS Statement are negative. General Exam Limitations: no limitations General appearance: alert, in no apparent distress Head exam: Present: atraumatic, normocephalic, normal inspection Eye exam: Present: normal appearance, PERRL, EOMI. Absent: scleral icterus, conjunctival injection, periorbital swelling ENT exam: Present: normal exam, mucous membranes moist Neck exam: Present: normal inspection. Absent: tenderness, meningismus, lymphadenopathy Respiratory exam: Present: normal lung sounds bilaterally. Absent: respiratory distress, wheezes, rales, rhonchi, stridor Cardiovascular Exam: Present: regular rate, normal rhythm, normal heart sounds. Absent: systolic murmur, diastolic murmur, rubs, gallop, clicks GI/Abdominal exam: Present: soft, normal bowel sounds. Absent: distended, tenderness, guarding, rebound, rigid Extremities exam: Present: normal inspection, full ROM, normal capillary refill. Absent: tenderness, pedal edema, joint swelling, calf tenderness Back exam: Present: normal inspection Neurological exam: Present: alert, oriented X3, CN II-XII intact Psychiatric exam: Present: normal affect, normal mood Skin exam: Present: warm, dry, intact, normal color. Absent: rash Stroke MDM - Lab Data Result diagrams: 05/10/23 12:56 05/10/23 12:56 Lab Results 05/10/23 05/10/23 05/10/23 Range/Units 12:56 12:56 12:56 WBC 7.1 (3.8-10.6) k/uL RBC 5.11 (3.80-5.40) m/uL Hgb 13.5 (11.4-16.0) gm/dL Hct 41.8 (34.0-46.0) % MCV 81.8 (80.0-100.0) fL MCH 26.5 (25.0-35.0) pg MCHC 32.4 (31.0-37.0) g/dL RDW 15.2 (11.5-15.5) % Plt Count 345 (150-450) k/uL MPV 8.5 Neutrophils % 53 % Lymphocytes % 36 % Monocytes % 5 % Eosinophils % 3 % Basophils % 0 % Neutrophils # 3.8 (1.3-7.7) k/uL Lymphocytes # 2.6 (1.0-4.8) k/uL Monocytes # 0.4 (0-1.0) k/uL Eosinophils # 0.2 (0-0.7) k/uL Basophils # 0.0 (0-0.2) k/uL PT 10.7 (10.0-12.5) sec INR 1.0 (<1.2) APTT 25.9 (22.0-30.0) sec Sodium 139 (137-145) mmol/L Potassium 4.2 (3.5-5.1) mmol/L Chloride 101 (98-107) mmol/L Carbon Dioxide 26 (22-30) mmol/L Anion Gap 12 mmol/L BUN 14 (7-17) mg/dL Creatinine 0.65 (0.52-1.04) mg/dL Est GFR (CKD-EPI)AfAm >90 (>60 ml/min/1.73 sqM) Est GFR (CKD-EPI)NonAf >90 (>60 ml/min/1.73 sqM) Glucose 98 (74-99) mg/dL Plasma Lactic Acid Giancarlo (0.7-2.0) mmol/L Calcium 9.7 (8.4-10.2) mg/dL Phosphorus 4.5 (2.5-4.5) mg/dL Magnesium 1.8 (1.6-2.3) mg/dL Total Bilirubin 0.6 (0.2-1.3) mg/dL AST 32 (14-36) U/L ALT 35 H (4-34) U/L Alkaline Phosphatase 72 (38-126) U/L Troponin I (0.000-0.034) ng/mL NT-Pro-B Natriuret Pep <20 pg/mL Total Protein 8.2 (6.3-8.2) g/dL Albumin 4.8 (3.5-5.0) g/dL 05/10/23 05/10/23 Range/Units 12:56 12:56 WBC (3.8-10.6) k/uL RBC (3.80-5.40) m/uL Hgb (11.4-16.0) gm/dL Hct (34.0-46.0) % MCV (80.0-100.0) fL MCH (25.0-35.0) pg MCHC (31.0-37.0) g/dL RDW (11.5-15.5) % Plt Count (150-450) k/uL MPV Neutrophils % % Lymphocytes % % Monocytes % % Eosinophils % % Basophils % % Neutrophils # (1.3-7.7) k/uL Lymphocytes # (1.0-4.8) k/uL Monocytes # (0-1.0) k/uL Eosinophils # (0-0.7) k/uL Basophils # (0-0.2) k/uL PT (10.0-12.5) sec INR (<1.2) APTT (22.0-30.0) sec Sodium (137-145) mmol/L Potassium (3.5-5.1) mmol/L Chloride (98-107) mmol/L Carbon Dioxide (22-30) mmol/L Anion Gap mmol/L BUN (7-17) mg/dL Creatinine (0.52-1.04) mg/dL Est GFR (CKD-EPI)AfAm (>60 ml/min/1.73 sqM) Est GFR (CKD-EPI)NonAf (>60 ml/min/1.73 sqM) Glucose (74-99) mg/dL Plasma Lactic Acid Giancarlo 1.5 (0.7-2.0) mmol/L Calcium (8.4-10.2) mg/dL Phosphorus (2.5-4.5) mg/dL Magnesium (1.6-2.3) mg/dL Total Bilirubin (0.2-1.3) mg/dL AST (14-36) U/L ALT (4-34) U/L Alkaline Phosphatase (38-126) U/L Troponin I <0.012 (0.000-0.034) ng/mL NT-Pro-B Natriuret Pep pg/mL Total Protein (6.3-8.2) g/dL Albumin (3.5-5.0) g/dL - NIH Stroke Scale 1a. Level of Consciousness: (0) alert 1b. LOC Questions: (0) answers correctly 1c. LOC Commands: (0) performs tasks correctly 2. Best Gaze: (0) normal 3. Visual: (0) no visual loss 4. Facial Palsy: (2) partial paralysis 5a. Motor Arm Left: (0) no drift 5b. Motor Arm Right: (0) no drift 6a. Motor Leg Left: (0) no drift 6b. Motor Leg Right: (0) no drift 7. Limb Ataxia: (0) absent 8. Sensory: (0) normal 9. Best Language: (0) no aphasia 10. Dysarthria: (0) normal 11. Extinction/Inattention: (0) no abnormality - Thrombolytic Inclusion/Exclusion Thrombolytic Exclusion Criteria: Onset of Symptoms Unknown Thrombolytic Inclusion Criteria: Symptom Onset < 4.5 h - Medical Decision Making 67 female to the emergency department for facial palsy. Patient has signs and symptoms consistent with Celis's palsy here in the emergency room, patient did want computed tomography scan sick headache but symptoms are improving. Headache is resolved, patient for results questions answered feels good for discharge home - Radiology Data Radiology results: report reviewed (CT brain is negative for acute disease), image reviewed - EKG Data -: EKG Interpreted by Me (EKG is sinus 79 SD 164 QRS 83 QTc 414) Past Medical History Past Medical History: GERD/Reflux, GI Bleed, Hyperlipidemia, Hypertension Additional Past Medical History / Comment(s): MURMUR, colitis History of Any Multi-Drug Resistant Organisms: MRSA Date of last positivie culture/infection: 07/02/15 MDRO Source:: BUTTOCK Past Surgical History: Appendectomy Additional Past Surgical History / Comment(s): CYSTS REMOVED FROM OVARIES,COLONOSCOPY. Past Anesthesia/Blood Transfusion Reactions: Previous Problems w/ Anesthesia Additional Past Anesthesia/Blood Transfusion Reaction / Comment(s): DIFFICULTY W AKING. Past Psychological History: No Psychological Hx Reported Past Alcohol Use History: None Reported Past Drug Use History: None Reported - Past Family History Father Family Medical History: Diabetes Mellitus, Hypertension, Osteoarthritis (OA), Thyroid Disorder Mother Family Medical History: Diabetes Mellitus Additional Family Medical History / Comment(s): HIP REPLACEMENT- MOM IS Course Vital Signs 05/10/23 05/10/23 11:45 14:10 Temperature 98 F Pulse Rate 98 87 Respiratory 16 18 Rate Blood Pressure 169/90 155/94 O2 Sat by Pulse 96 97 Oximetry - Reevaluation(s) Reevaluation #1: 05/10/23 13:08 Medical records reviewed Reevaluation #2: 05/10/23 13:08 Patient symptoms are improving Reevaluation #3: 05/10/23 13:08 Patient informed results questions answered Reevaluation #4: 05/10/23 13:02 Was pt. sent in by a medical professional or institution (, PA, GAS DIST[employer]ION [employer]ANT OPERATOR, urgent care, hospital, or skilled nursing...) When possible be specific @ -no Did you speak to anyone other than the patient for history (EMS, parent, family, police, friend...)? What history was obtained from this source @ -no Did you review nursing and triage notes (agree or disagree)? Why? @ -agree Are old charts reviewed (outside hosp., previous admission, EMS record, old EKG, old radiological studies, urgent care reports/EKG's, skilled nursing records)? Report findings @ -yes Differential Diagnosis (chest pain, altered mental status, abdominal pain women, abdominal pain men, vaginal bleeding, weakness, fever, dyspnea, syncope, he adache, dizziness, GI bleed, back pain, seizure, CVA, palpatations, mental health, musculoskeletal)? @ -prior EKG interpreted by me (3pts min.). @ -yes X-rays interpreted by me (1pt min.). @ -no CT interpreted by me (1pt min.). @ -yes U/S interpreted by me (1pt. min.). @ -no What testing was considered but not performed or refused? (CT, X-rays, U/S, labs)? Why? @ -none What meds were considered but not given or refused? Why? @ -none Did you discuss the management of the patient with other professionals (professionals i.e. , PA, GAS DIST[employer]ION PLANT OPERATOR, lab, RT, psych nurse, 7th grade social studies teacher, mold sprayer, teacher, rating officer, casework manager)? Give summary @ -no Was smoking cessation discussed for >3mins.? @ -no Was critical care preformed (if so, how long)? @ -no Were there social determinants of health that impacted care today? How? (Homelessness, low income, unemployed, alcoholism, drug addiction, t ransportation, low edu. Level, literacy, decrease access to med. care, correction, rehab)? @ -none Was there de-escalation of care discussed even if they declined (Discuss DNR or withdrawal of care, Hospice)? DNR status @ -no What co-morbidities impacted this encounter? (DM, HTN, Smoking, COPD, CAD, Can cer, CVA, ARF, Chemo, Hep., AIDS, mental health diagnosis, sleep apnea, morbid obesity)? @ -none Was patient admitted / discharged? Hospital course, mention meds given and route, prescriptions, significant lab abnormalities, going to OR and other pertinent info. @ - 67 female to the emergency department for facial palsy. Patient has signs and symptoms consistent with Celis's palsy here in the emergency room, patient did want computed tomography scan sick headache but symptoms are improving. H eadache is resolved, patient for results questions answered feels good for discharge home Discharge Undiagnosed new problem with uncertain prognosis? @ -no Drug Therapy requiring intensive monitoring for toxicity (Heparin, Nitro, Insulin, Cardizem)? @ -no Were any procedures done? @ -no Diagnosis/symptom? @ -Celis's palsy Acute, or Chronic, or Acute on Chronic? @ -Acute Uncomplicated (without systemic symptoms) or Complicated (systemic symptoms)? @ -Complicated Side effects of treatment? @ -no Exacerbation, Progression, or Severe Exacerbation? @ -exacerbation Poses a threat to life or bodily function? How? (Chest pain, [place], [place], pneumonia, PE, COPD, DKA, ARF, appy, cholecystitis, CVA, Diverticulitis, Homicidal, Suicidal, threat to staff... and all critical care pts) @ -yes if possible CVA Reevaluation #5: 05/10/23 13:08 Differential CVA Ischemic stroke, hemorrhagic stroke, brain tumor, atypical migraine, Wernicke's encephalopathy, seizure, multiple sclerosis, meningitis, encephalitis, hypoglycemia, Guillain-Beavers, electrolytes disturbance, myasthenia gravis.... This is not meant to be an all-inclusive list Disposition Clinical Impression: Celis's palsy Disposition: HOME SELF-CARE Condition: Good Instructions (If sedation given, give patient instructions): Celis Palsy (ED) Prescriptions: predniSONE [Deltasone] 60 mg PO DAILY #21 tab valACYclovir HCL [Valacyclovir] 1,000 mg PO TID #21 tab Is patient prescribed a controlled substance at d/c from ED?: No Referrals: Russell Tanner DO [Primary Care Provider] - 1-2 days
--- NOTE | 2023-05-10 13:28 | CT ---
EXAMINATION TYPE: CT brain wo con CT DLP: 1036.4 mGycm, Automated exposure control for dose reduction was used. DATE OF EXAM: 05/10/2023 1:24 PM COMPARISON: None. CLINICAL INDICATION:Female, 67 years old with history of pain, Lt sided facial pain and numbness TECHNIQUE: Brain: Axial CT images of the brain were obtained with coronal and sagittal reformats created and rev iewed. Contrast used: None. Oral contrast used: None. FINDINGS: Brain: Extra-axial spaces: No abnormal extra-axial fluid collections. Ventricular system: Within normal limits Cerebral parenchyma: No acute intraparenchymal hemorrhage or mass effect. The pineda-white junction is well differentiated. Cerebellum: Unremarkable. Mass effect: No evidence of midline shift. Intracranial vasculature: Atherosclerotic calcifications of the intracranial vessels. Soft tissues: Normal. Calvarium/osseous structures: No depressed skull fracture. Paranasal sinuses and mastoid air cells: Mild scattered paranasal sinus disease. Visualized orbits: Orbital contents are intact. IMPRESSION: No acute intracranial process.
[2023-05-10 13:34] LABS: Basophils % (A) 0 %; Eosinophils # (A) 0.2 k/uL (0-0.7); Eosinophils % (A) 3 %; HCT 41.8 % (34.0-46.0); HGB 13.5 gm/dL (11.4-16.0); Lymphocytes # (A) 2.6 k/uL (1.0-4.8); Lymphocytes % (A) 36 %; MCH 26.5 pg (25.0-35.0); MCHC 32.4 g/dL (31.0-37.0); MCV 81.8 fL (80.0-100.0); Mean Platelet Volume 8.5; Monocytes # (A) 0.4 k/uL (0-1.0); Monocytes % (A) 5 %; Neutrophils # (A) 3.8 k/uL (1.3-7.7); Neutrophils % (A) 53 %; Platelet Count 345 k/uL (150-450); RBC 5.11 m/uL (3.80-5.40); RDW 15.2 % (11.5-15.5); WBC 7.1 k/uL (3.8-10.6)
[2023-05-10 13:45] LABS: Partial Thromboplastin Time 25.9 sec (22.0-30.0); Prothrombin Time 10.7 sec (10.0-12.5)
[2023-05-10 13:57] LABS: ALT 35 U/L (4-34); AST 32 U/L (14-36); African American GFR (CKD) >90 (>60 ml/min/1.73 sqM); Albumin 4.8 g/dL (3.5-5.0); Alkaline Phosphatase 72 U/L (38-126); Anion Gap 12 mmol/L; Blood Urea Nitrogen 14 mg/dL (7-17); Calcium 9.7 mg/dL (8.4-10.2); Carbon Dioxide 26 mmol/L (22-30); Chloride 101 mmol/L (98-107); Glucose 98 mg/dL (74-99); Magnesium 1.8 mg/dL (1.6-2.3); Non-African American GFR(CKD) >90 (>60 ml/min/1.73 sqM); Phosphorus 4.5 mg/dL (2.5-4.5); Potassium 4.2 mmol/L (3.5-5.1); Sodium 139 mmol/L (137-145); Total Bilirubin 0.6 mg/dL (0.2-1.3); Total Protein 8.2 g/dL (6.3-8.2)
[2023-05-10 14:01] LABS: NT-Pro-B-Type Natriuretic Pept <20 pg/mL
[2023-05-10 14:22] VITALS: BP 155/94; PULSE 87; RESP 18
== END 2023-05-10 14:16 | disposition home or self-care (01) ==
LOC: EC 11:42
DX: G51.0 Bell's palsy (principal); K21.9 Gastro-esophageal reflux disease without esophagitis; E78.5 Hyperlipidemia, unspecified; I10 Essential (primary) hypertension; Z79.899 Other long term (current) drug therapy; Z90.49 Acquired absence of other specified parts of digestive tract
CPT/HCPCS: 36415; 93005; 83880; 80053; 83605; 83735; 84100; 84484; 85025; 85610; 85730; 70450; 99285; 96374; 96361; J1100

== ENCOUNTER → 2024-03-16 | Outpatient (CLI) | payer MEDICARE ==
--- NOTE | 2024-03-23 08:54 | MM ---
Reason for Exam: Screening (asymptomatic). Last screening mammogram was performed 12 month(s) ago. Patient History: Menarche at age 11. First Full-Term at age 34. Late child-bearing (after 30). Postmenopausal. Patient has history of breast feeding. Hormonal Contraceptives for 1 year from age 21 until age 22. Paternal aunt had breast cancer, age 78. Risk Values: Maria Victoria 5 year model risk: 2.4%. NCI Lifetime model risk: 7.3%. Prior Study Comparison: 01/07/2020 Bilateral Screening Mammogram, [facility]. 11/14/2021 Bilateral Screening Mammogram, [facility]. 03/11/2023 Bilateral MG 3D screening mammo w/cad, [facility]. Tissue Density: There are scattered areas of fibroglandular density. Findings: Analyzed By CAD. There is no suspicious group of microcalcifications or new suspicious mass in either breast. Benign appearing calcifications. Overall Assessment: Benign, BI-RAD 2 Management: Screening Mammogram of both breasts in 1 year. . Patient should continue monthly self-breast exams. A clinical breast exam by your physician is recommended on an annual basis. This exam should not preclude additional follow-up of suspicious palpable abnormalities. Note on Maria Victoria scores and lifetime risk: 1. A Maria Victoria score greater than 3% is considered moderate risk. If this is the case, consider specialist referral to assess eligibility for a risk reducing agent. 2. If overall lifetime risk for the development of breast cancer is 20% or higher, the patient may qualify for future screening with alternating mammogram and breast MRI. Electronically signed and approved by: Mahesh Chen M.D. Radiologis
== END | disposition home or self-care (01) ==
LOC: RADMAMWWP 08:02
PROVIDERS: ATTEND Family Medicine
DX: Z12.31 Encounter for screening mammogram for malignant neoplasm of breast
CPT/HCPCS: 77063; 77067

== ENCOUNTER → 2024-11-02 | Outpatient (CLI) | payer MEDICARE ==
[2024-11-02 15:03] LABS: HCT 39.9 % (37.2-46.3); HGB 12.3 g/dL (12.0-15.0); MCH 24.8 pg (27.0-32.0); MCHC 30.8 g/dL (32.0-37.0); MCV 80.6 FL (80.0-97.0); Mean Platelet Volume 11.2 FL (9.5-12.2); NRBC Per 100 WBC 0 X 10*3/uL (0.00-0.01); Platelet Count 294 X 10*3/uL (140-440); RBC 4.95 X 10*6/uL (4.10-5.20); RDW 15.4 % (11.5-14.5)
[2024-11-02 15:04] LABS: Basophils # (A) 0.06 X 10*3/uL (0.00-0.10); Basophils % (A) 0.8 %; Eosinophils # (A) 0.28 X 10*3/uL (0.04-0.35); Eosinophils % (A) 3.8 %; Lymphocytes # (A) 2.39 X 10*3/uL (0.90-5.00); Lymphocytes % (A) 32.7 %; Monocytes # (A) 0.62 X 10*3/uL (0.20-1.00); Monocytes % (A) 8.5 %; Neutrophils # (A) 3.93 X 10*3/uL (1.80-7.70); Neutrophils % (A) 53.9 %
[2024-11-02 15:33] LABS: % Iron Saturation 10.32 (12.00-45.00); BUN/Creat Ratio 18.43 Ratio (12.00-20.00); Blood Urea Nitrogen 12.9 mg/dL (9.0-27.0); Calcium 9.6 mg/dL (8.7-10.3); Carbon Dioxide 25.9 mmol/L (21.6-31.8); Chloride 102 mmol/L (96-109); Ferritin 13.9 ng/mL (10.0-291.0); Glucose 112 mg/dL (70-110); Iron 52 UG/DL (50-170); Potassium 4.9 mmol/L (3.5-5.5); Sodium 138 mmol/L (135-145); Total Iron Binding Capacity 504 UG/DL (228-460)
== END | disposition home or self-care (01) ==
LOC: LABWHC1 09:03
PROVIDERS: ATTEND Family Medicine
DX: E11.649 Type 2 diabetes mellitus with hypoglycemia without coma (principal); R71.8 Other abnormality of red blood cells
CPT/HCPCS: 36415; 80048; 82728; 83036; 83540; 83550; 85025

== ENCOUNTER 2025-02-01 13:18 | Emergency (ER) | payer MEDICARE ==
[2025-02-01 13:22] VITALS: TEMP 97.9
--- NOTE | 2025-02-01 14:35 | XR ---
EXAMINATION TYPE: XR knee complete LT DATE OF EXAM: 02/01/2025 2:20 PM COMPARISON: None CLINICAL INDICATION: Female, 69 years old with history of pain; PHH, pain TECHNIQUE: 3 views FINDINGS: Extensor mechanism appears intact. Enthesopathy of report the patella. No significant joint effusion. No acute fracture, subluxation, dislocation. IMPRESSION: No acute osseous abnormality seen. [facility], Workstation: [facility], 02/01/2025 2:32 PM
--- NOTE | 2025-02-01 15:23 | ED ---
Lower Extremity Injury HPI - General Chief Complaint: Extremity Injury, Lower Stated Complaint: L knee pain Time Seen by Provider: 02/01/25 13:29 Source: patient, RN notes reviewed Mode of arrival: ambulatory Limitations: no limitations - History of Present Illness Initial Comments: 69-year-old female presents emerged part complaint left knee pain. Patient states that she been having some knee discomfort it has been achy states that she went to step up and felt something pop in the back of her knee on the left side lateral patient states that now it is more painful only when she weightbears. Patient prior knee surgeries no falls no back pain no leg swelling no paresthesias. - Related Data Home Medications Medication Instructions Recorded Confirmed Lovastatin 40 mg PO HS 11/22/14 09/02/18 Omeprazole [PriLOSEC] 20 mg PO DAILY 11/22/14 09/02/18 amLODIPine BESYLATE/BENAZEPRIL 1 cap PO DAILY 07/02/15 09/02/18 [Lotrel 5-10 mg Capsule] Multivit-Min/Iron/Folic/Lutein 1 tab PO DAILY 09/02/18 09/02/18 [Centrum Silver Women Tablet] Previous Rx's Medication Instructions Recorded predniSONE [Deltasone] 60 mg PO DAILY #21 tab 05/10/23 valACYclovir HCL [Valacyclovir] 1,000 mg PO TID #21 tab 05/10/23 Allergies Allergy/AdvReac Type Severity Reaction Status Date / Time No Known Allergies Allergy Verified 02/01/25 13:21 Review of Systems ROS Statement: Those systems with pertinent positive or pertinent negative responses have been documented in the HPI. ROS Other: All systems not noted in ROS Statement are negative. Past Medical History Past Medical History: GERD/Reflux, GI Bleed, Hyperlipidemia, Hypertension Additional Past Medical History / Comment(s): MURMUR, colitis History of Any Multi-Drug Resistant Organisms: MRSA Date of last positivie culture/infection: 07/02/15 MDRO Source:: BUTTOCK Past Surgical History: Appendectomy Additional Past Surgical History / Comment(s): CYSTS REMOVED FROM OVARIES,COLONOSCOPY. Past Anesthesia/Blood Transfusion Reactions: Previous Problems w/ Anesthesia Additional Past Anesthesia/Blood Transfusion Reaction / Comment(s): DIFFICULTY WAKING. Past Psychological History: No Psychological Hx Reported Smoking Status: Never smoker Past Alcohol Use History: None Reported Past Drug Use History: None Reported - Past Family History Father Family Medical History: Diabetes Mellitus, Hypertension, Osteoarthritis (OA), T hyroid Disorder Mother Family Medical History: Diabetes Mellitus Additional Family Medical History / Comment(s): HIP REPLACEMENT- MOM IS General Exam Limitations: no limitations General appearance: alert, in no apparent distress Head exam: Present: atraumatic, normocephalic, normal inspection Eye exam: Present: normal appearance, PERRL, EOMI. Absent: scleral icterus, conjunctival injection, periorbital swelling ENT exam: Present: normal exam, normal oropharynx, mucous membranes moist Neck exam: Present: normal inspection, full ROM. Absent: tenderness, meningismu s, lymphadenopathy Respiratory exam: Present: normal lung sounds bilaterally. Absent: respiratory distress, wheezes, rales, rhonchi, stridor Cardiovascular Exam: Present: regular rate, normal rhythm, normal heart sounds. Absent: systolic murmur, diastolic murmur, rubs, gallop, clicks Extremities exam: Present: other (Knee full range of motion vascular intact no significant erythema swelling no laxity noted pedal pulses equal bilaterally) Course Vital Signs 02/01/25 13:19 Temperature 97.9 F Pulse Rate 89 Respiratory 18 Rate Blood Pressure 146/83 O2 Sat by Pulse 98 Oximetry Medical Decision Making - Medical Decision Making Was pt. sent in by a medical professional or institution (DARIUS Wang, [employer], urgent care, hospital, or usp...) When possible be specific @ -No Did you speak to anyone other than the patient for history (EMS, parent, family, police, friend...)? What history was obtained from this source @ -No Did you review nursing and triage notes (agree or disagree)? Why? @ -I reviewed and agree with nursing and triage notes Were old charts reviewed (outside hosp., previous admission, EMS record, old EKG, old radiological studies, urgent care reports/EKG's, usp records)? Report findings @ -No old charts were reviewed Differential Diagnosis (chest pain, altered mental status, abdominal pain women, abdominal pain men, vaginal bleeding, weakness, fever, dyspnea, syncope, headache, dizziness, GI bleed, back pain, seizure, CVA, palpatations, mental health, musculoskeletal)? @ -Knee pain knee sprain meniscus injury EKG interpreted by me (3pts min.). @ -None X-rays interpreted by me (1pt min.). @ -X-ray left knee showing mild osteoarthritis no other acute osseous ab malady CT interpreted by me (1pt min.). @ -None done U/S interpreted by me (1pt. min.). @ -None done What testing was considered but not performed or refused? (CT, X-rays, U/S, labs)? Why? @ -None What meds were considered but not given or refused? Why? @ -None Did you discuss the management of the patient with other professionals (professionals i.e. DrYudith, PA, [employer]TAIN, lab, RT, psych nurse, social contact worker, gas engine operator compressors, teacher, dog control officer, rn case manager)? Give summary @ -No Was smoking cessation discussed for >3mins.? @ -No Was critical care preformed (if so, how long)? @ -No Were there social determinants of health that impacted care today? How? (Homelessness, low income, unemployed, alcoholism, drug addiction, transportation, low edu. Level, literacy, decrease access to med. care, long-term, rehab)? @ -No Was there de-escalation of care discussed even if they declined (Discuss DNR or withdrawal of care, Hospice)? DNR status @ -No What co-morbidities impacted this encounter? (DM, HTN, Smoking, COPD, CAD, Cancer, CVA, ARF, Chemo, Hep., AIDS, mental health diagnosis, sleep apnea, morb id obesity)? @ -None Was patient admitted / discharged? Hospital course, mention meds given and route, prescriptions, significant lab abnormalities, going to OR and other pertinent info. @ -Discharge patient has left knee injury without acute/abnormality concerning for meniscus versus ligamentous injury. Patient discharged in stable condition. Undiagnosed new problem with uncertain prognosis? @ -No Drug Therapy requiring intensive monitoring for toxicity (Heparin, Nitro, Insulin, Cardizem)? @ -No Were any procedures done? @ -No Diagnosis/symptom? @ -Left knee pain Acute, or Chronic, or Acute on Chronic? @ -Acute Uncomplicated (without systemic symptoms) or Complicated (systemic symptoms)? @ -Uncomplicated Side effects of treatment? @ -No Exacerbation, Progression, or Severe Exacerbation? @ -No Poses a threat to life or bodily function? How? (Chest pain, USA, MS, pneumonia, PE, COPD, DKA, ARF, appy, cholecystitis, CVA, Diverticulitis, Homicidal, Suicidal, threat to staff... and all critical care pts) @ -No Disposition Clinical Impression: Left knee pain Disposition: HOME SELF-CARE Condition: Stable Instructions (If sedation given, give patient instructions): Knee Sprain (ED), Knee Pain (ED) Additional Instructions: Please return to the Emergency Department if symptoms worsen or any other concerns. Is patient prescribed a controlled substance at d/c from ED?: No Referrals: Russell Tanner DO [Primary Care Provider] - 1-2 days Sam Pan MD [STAFF PHYSICIAN] - 1-2 days Time of Disposition: 15:23
[2025-02-01 15:46] VITALS: BP 175/95; PULSE 81; RESP 16
== END 2025-02-01 15:46 | disposition home or self-care (01) ==
LOC: EC 13:18
DX: M25.562 Pain in left knee (principal)
CPT/HCPCS: 73562; 99283; L1830